=== PATIENT | female | born 1970 | race Caucasian/White ===

== ENCOUNTER → 2021-09-12 13:01 | Outpatient (BNVA) | payer MEDICARE, MEDICAID, SELFPAY | PROVIDERS: PCP Internal Medicine; Visit Provider Psychiatry & Neurology Neurology | DX: R25.9 Unspecified abnormal involuntary movements (principal); R29.2 Abnormal reflex; F41.9 Anxiety disorder, unspecified; M54.2 Cervicalgia; G47.10 Hypersomnia, unspecified; R06.83 Snoring; F32.A Depression, unspecified | CPT/HCPCS: 99202 ==

== ENCOUNTER 2021-11-02 15:46 | Outpatient (REF) | payer MEDICARE, MEDICAID, SELFPAY ==
--- NOTE | ~2021-11-02 | MR_ITS ---
EXAMINATION: MR CERVICAL SPINE WITHOUT CONTRAST CLINICAL INFORMATION: Neck pain. COMPARISON: None TECHNIQUE: MRI of the cervical spine was obtained using routine sequences without contrast. FINDINGS: VERTEBRAL BODIES AND PARASPINAL SOFT TISSUES: The marrow signal is homogeneous. There is mild endplate spurring at the C6-C7 level with a generalized disc bulge. Slight reversal of the normal cervical lordosis evident. There are no compression fractures. There is a mild rightward curvature of the cervical spine as well. No marrow edema is seen. The paraspinal soft tissues are unremarkable. The vertebral artery flow-voids are preserved. The imaged lung apices are grossly clear. CERVICOMEDULLARY JUNCTION AND VISUALIZED POSTERIOR FOSSA: The craniovertebral junction and imaged portions of the brain parenchyma are normal. No cord signal abnormality or syrinx is seen. SPINAL LEVELS: C2-C3: No disc pathology, central canal stenosis, or foraminal narrowing. Mild left-sided facet arthrosis. C3-C4: No disc abnormality. Patent central canal and foramina. C4-C5: Minimal annular bulge. No central canal stenosis or foraminal encroachment. C5-C6: Very mild disc bulge and endplate spurring without central canal stenosis. Mild left foraminal narrowing. C6-C7: Small central disc protrusion and mild disc bulge without central canal stenosis or foraminal narrowing. C7-T1: No disc pathology. Minimal anterior subluxation and mild facet arthropathy. MR/MR cervical spine wo con IMPRESSION: Very mild spondylitic changes, more so at the C5-C6 level. Small central disc protrusion and mild disc bulge at the C6-C7 level. Mild reversal of the normal cervical lordosis.
== END 2021-11-02 15:47 | disposition home or self-care (01) ==
LOC: HO.MRI 15:46
PROVIDERS: Visit Provider Psychiatry & Neurology Neurology
DX: M54.2 Cervicalgia (principal); R25.9 Unspecified abnormal involuntary movements; R29.2 Abnormal reflex
CPT/HCPCS: 72141

== ENCOUNTER → 2021-11-22 15:09 | Outpatient (BNVA) | payer MEDICARE, MEDICAID, SELFPAY | PROVIDERS: PCP Internal Medicine; Visit Provider Psychiatry & Neurology Neurology | DX: R25.9 Unspecified abnormal involuntary movements (principal); M54.2 Cervicalgia; G47.10 Hypersomnia, unspecified; R06.83 Snoring; Z79.899 Other long term (current) drug therapy | CPT/HCPCS: Q3014 ==

== ENCOUNTER 2024-03-04 14:26 | Outpatient (AMB) | payer MEDICARE, MEDICAID, SELFPAY ==
--- NOTE | 2024-03-04 14:29 | A.OFFVIS_ITS ---
Intake Visit Reasons: Chronic Joint Pain Intake Note: Pain today 8/10 Thai Masseur Required: No Accompanied by: Self / Same As Patient Allergies adhesive Allergy (Mild, Verified 03/04/24 14:51) Rash naproxen Allergy (Mild, Verified 03/04/24 14:51) Rash amoxicillin Allergy (Verified 03/04/24 14:51) Unknown HPI Comments Details: Patient is a very pleasant 53-year-old female who presents to the office today for evaluation and management of her chronic diffuse joint pain Past medical history significant for headaches, fatigue, asthma, mental illness, high blood pressure She complains of pain over the last 2 years to the knees, ankles, wrists, elbows, upper, middle and lower back Reports that she has had blood work done for her primary care doctor to rule out any autoimmune disorders. All labs were negative. She was recently evaluated by [facility] treatment [facility], had injections to her elbows and wrists with some improvement Previously prescribed gabapentin 600 mg twice daily with no improvement of her symptoms so she stopped taking it No improvement with Cymbalta in the past either. Attempted physical therapy years ago with improvement of her symptoms. She has not really attempted recently. Denies history of chiropractor, acupuncture or massage. Pain is constant, worse in the afternoon. Pain today is rated as an 8/10 In terms of muscle damage condition is described as pulsing, throbbing, pounding, dull, sore, aching, tight, squeezing Pain is negatively impacting patient's enjoyment of life, general activity, ability for activities of daily living, ability to care for herself, normal functioning and normal sleep Denies current use of anticoagulants Denies implantable devices, pacemaker defibrillator Denies current use of nicotine, tobacco, alcohol or illicit substances [facility] Medical History (Updated 03/04/24 @ 15:40 by Mireya Mason, CONTROL TOWER RADIO OPERATOR, ENVIRONMENTAL ADVISER) Hyperlipidemia Chronic elbow pain Chronic wrist pain Insomnia Cataract Borderline hyperlipidemia Anemia Sleep disorder Asthma Anxiety Depression Surgical History History of bunionectomy of right great toe History of breast lift Hx of abdominoplasty H/O cone biopsy of cervix H/O breast biopsy Family History Father Parkinsons disease Asthma HTN (hypertension) Mother HTN (hypertension) COPD (chronic obstructive pulmonary disease) Kidney disease Social History Alcohol intake: current Alcohol intake frequency: holidays/special occasions only Patient Tobacco Use Status: Never used Tobacco Gender identity: Female Review of Systems Const All systems reviewed & are unremarkable except as noted in HPI and below Physical Exam General: awake, alert, oriented. Answers questions appropriately. Fully engaged in examination. Skin: warm, dry, intact HEENT: Normocephalic. Hearing intact. Cardiac: External chest normal in appearance. Respiratory: No cough, audible wheezing or stridor. Abdomen: without gross distension. MS: No obvious swelling or deformities. Able to transition from sit to stand unassisted. Ambulates with bilaterally normal heel strike and toe off Neurological: Oriented to person, place, time and situation. Thought process intact. No gait abnormalities appreciated. Psychiatric: Appropriate mood and affect. Good judgment and insight. Assessment & Plan Assessment & Plan (1) Myofascial muscle pain: Comment: back Code(s): M79.18 - Myalgia, other site Category: Medical (2) Neck pain: Code(s): M54.2 - Cervicalgia Category: Medical (3) Lumbar spondylosis: Code(s): M47.816 - Spondylosis without myelopathy or radiculopathy, lumbar region Category: Medical (4) Polyarthralgia: Code(s): M25.50 - Pain in unspecified joint Category: Medical Plan X-rays ordered for evaluation, cervical, lumbar and thoracic spine Order placed for PT eval and treat Patient referred to rheumatology for polyarthralgia New prescription for Lyrica 25 mg p.o. 3 times daily. Patient advised on cautions for use. All questions and concerns were answered, patient agrees with plan. Follow-up in 3 weeks by phone to review medication and consider dose increase. Follow up sooner if needed Orders: Orders XR cervical spine w flex/ext Today M54.2 - Cervicalgia XR lumbar spine 4V min Today M54.9 - Dorsalgia, unspecified XR thoracic spine 3V Today M54.9 - Dorsalgia, unspecified PT Evaluation and Treatment Today M54.2 - Cervicalgia, M54.9 - Dorsalgia, unspecified, M79.18 - Myalgia, other site Referrals Rheumatology Referral M25.50 - Pain in unspecified joint Medications: New pregabalin (Lyrica) 25 mg PO TID 90 caps 2RF Coding Level of Care Code New Pt Level 4 (80530) Complex EM visit Add On G2211 Diagnoses Myofascial muscle pain M79.18 Neck pain M54.2 Lumbar spondylosis M47.816 Polyarthralgia M25.50
== END 2024-03-04 15:07 | disposition home or self-care (01) ==
PROVIDERS: PCP Internal Medicine; Visit Provider Registered Nurse Emergency
DX: M79.18 Myalgia, other site (principal); M54.2 Cervicalgia; M47.816 Spondylosis without myelopathy or radiculopathy, lumbar region; M25.50 Pain in unspecified joint
CPT/HCPCS: 99204; G2211

== ENCOUNTER → 2024-03-04 14:26 | Outpatient (BNVA) | payer MEDICARE, MEDICAID, SELFPAY | PROVIDERS: PCP Internal Medicine; Visit Provider Registered Nurse Emergency | DX: M79.18 Myalgia, other site (principal); M54.2 Cervicalgia; M47.816 Spondylosis without myelopathy or radiculopathy, lumbar region; M25.50 Pain in unspecified joint | CPT/HCPCS: 99202 ==

== ENCOUNTER 2024-03-18 14:47 | Outpatient (AMB) | payer MEDICARE, MEDICAID, SELFPAY ==
--- NOTE | 2024-03-18 14:25 | A.OFFVIS_ITS ---
Intake Visit Reasons: Medication Discussion Allergies adhesive Allergy (Mild, Verified 03/04/24 14:51) Rash naproxen Allergy (Mild, Verified 03/04/24 14:51) Rash amoxicillin Allergy (Verified 03/04/24 14:51) Unknown HPI Comments Details: Telephone visit completed today for follow-up, medication management At last visit patient was started on Lyrica 25 mg 3 times daily Reports 25% improvement in pain. Denies any untoward effects of the medication. Awaiting call from Rheumatology in [place] to schedule appointment for eval/management Intake note: Patient is a very pleasant 53-year-old female who presents to the office today for evaluation and management of her chronic diffuse joint pain Past medical history significant for headaches, fatigue, asthma, mental illness, high blood pressure She complains of pain over the last 2 years to the knees, ankles, wrists, elbows, upper, middle and lower back Reports that she has had blood work done for her primary care doctor to rule out any autoimmune disorders. All labs were negative. She was recently evaluated by arthritis treatment Center, had injections to her elbows and wrists with some improvement Previously prescribed gabapentin 600 mg twice daily with no improvement of her symptoms so she stopped taking it No improvement with Cymbalta in the past either. Attempted physical therapy years ago with improvement of her symptoms. She has not really attempted recently. Denies history of chiropractor, acupuncture or massage. Pain is constant, worse in the afternoon. Pain today is rated as an 8/10 In terms of muscle damage condition is described as pulsing, throbbing, pounding, dull, sore, aching, tight, squeezing Pain is negatively impacting patient's enjoyment of life, general activity, ability for activities of daily living, ability to care for herself, normal functioning and normal sleep Denies current use of anticoagulants Denies implantable devices, pacemaker defibrillator Denies current use of nicotine, tobacco, alcohol or illicit substances [facility] Medical History (Updated 03/04/24 @ 15:40 by Mireya Mason APRN, SEROLOGY TEACHER) Hyperlipidemia Chronic elbow pain Chronic wrist pain Insomnia Cataract Borderline hyperlipidemia Anemia Sleep disorder Asthma Anxiety Depression Surgical History History of bunionectomy of right great toe History of breast lift Hx of abdominoplasty H/O cone biopsy of cervix H/O breast biopsy Family History Father Parkinsons disease Asthma HTN (hypertension) Mother HTN (hypertension) COPD (chronic obstructive pulmonary disease) Kidney disease Social History Alcohol intake: current Alcohol intake frequency: holidays/special occasions only Patient Tobacco Use Status: Never used Tobacco Gender identity: Female Review of Systems Const All systems reviewed & are unremarkable except as noted in HPI and below Physical Exam Telephone visit only, vital signs and physical exam deferred Telehealth Telehealth Telehealth Platform: Telephone Location of provider rendering services: practice address Location of patient: address on file Patient Identification confirmed using: Name, : Yes Telehealth method: voice only Patient verbally consented to treatment: Yes Patient verbally consented to billing insurance company: Yes Patient informed of any privacy concerns related to visit: Yes Minutes spent on Phone/Video with Pt.: 24 Assessment & Plan Assessment & Plan (1) Myofascial muscle pain: Comment: back Code(s): M79.18 - Myalgia, other site Category: Medical (2) Neck pain: Code(s): M54.2 - Cervicalgia Category: Medical (3) Lumbar spondylosis: Code(s): M47.816 - Spondylosis without myelopathy or radiculopathy, lumbar region Category: Medical (4) Polyarthralgia: Code(s): M25.50 - Pain in unspecified joint Category: Medical Plan Telephone visit completed today for follow-up, medication management Tolerating Lyrica 25 mg t.i.d.. Pain has decreased by approximately 25%. Will increase to 50 mg 3 times daily. We will start with 25 mg twice daily than 50mg at bedtime for 1 week. Then 50 mg in the morning 50 mg in the evening and 25 mg in the afternoon for 1 week. After this she may increase to 50 mg 3 times daily. Continue with plan for follow up with Rheumatology. Referral has been placed for [facility] All questions and concerns were answered, patient agrees with plan. Follow-up after rheumatology appointment, sooner if needed Medications: New pregabalin (Lyrica) 50 mg PO TID 90 caps 2RF Coding Level of Care Code Tele Est Pt Level 3 (50451) Complex EM visit Add On G2211 Diagnoses Myofascial muscle pain M79.18 Neck pain M54.2 Lumbar spondylosis M47.816 Polyarthralgia M25.50
== END 2024-03-18 14:50 | disposition home or self-care (01) ==
LOC: HO.PMC 14:47
PROVIDERS: PCP Internal Medicine; Visit Provider Registered Nurse Emergency
DX: M79.18 Myalgia, other site (principal); M54.2 Cervicalgia; M47.816 Spondylosis without myelopathy or radiculopathy, lumbar region; M25.50 Pain in unspecified joint
CPT/HCPCS: 99443

== ENCOUNTER 2024-07-22 11:00 | Outpatient (REF) | payer MEDICARE, MEDICAID, SELFPAY ==
--- NOTE | ~2024-07-22 | XR_ITS ---
CLINICAL HISTORY: M25.50 - Pain in unspecified joint 3 view bilateral ankle Comparison: None Findings: Bones intact. No dislocations. No significant loss of joint space, osteophytes, or erosions. No ankle effusion. No radiopaque foreign body. IMPRESSION: 1. No acute findings. This document has been electronically signed by: Doe Francisco MD on 07/24/2024 07:44:34
--- NOTE | ~2024-07-22 | XR_ITS ---
CLINICAL HISTORY: M25.50 - Pain in unspecified joint 3 view bilateral foot Comparison: None Findings: Bones intact. No dislocations. No significant loss of joint space, osteophytes, or erosions. No ankle effusion. No radiopaque foreign body. IMPRESSION: 1. No acute findings. This document has been electronically signed by: Doe Francisco MD on 07/24/2024 07:45:39
--- NOTE | ~2024-07-22 | XR_ITS ---
CLINICAL HISTORY: M25.50 - Pain in unspecified joint 7 view bilateral elbow Comparison: None Findings: No acute fractures or dislocations. No significant arthritic change or erosions. No joint effusion. No radiopaque foreign body. IMPRESSION: 1. No acute findings This document has been electronically signed by: Doe Francisco MD on 07/24/2024 07:44:53
--- NOTE | ~2024-07-22 | XR_ITS ---
CLINICAL HISTORY: M25.50 - Pain in unspecified joint 3 view left hand Comparison: None Findings: No fractures or dislocations. No significant loss of joint space or osteophytes. No erosions. No radiopaque foreign body. IMPRESSION: 1. No acute findings This document has been electronically signed by: Doe Francisco MD on 07/24/2024 07:48:07
--- NOTE | ~2024-07-22 | XR_ITS ---
CLINICAL HISTORY: M25.50 - Pain in unspecified joint 4 view bilateral wrist Comparison: None Findings: No fractures or dislocations. No significant arthritic change or erosions. No radiopaque foreign body. IMPRESSION: 1. No acute findings This document has been electronically signed by: Doe Francisco MD on 07/24/2024 07:46:48
[2024-07-22 12:30] LABS: MANUAL DIFF FLAG NO
[2024-07-22 12:52] LABS: Basophils Percent Auto 0.7 % (0-2); Eosinophils Absolute Auto 0.3 X10*3/uL (0.0-0.4); Eosinophils Percent Auto 5.1 % (0-4); Hematocrit 41.8 % (37.0-47.0); Hemoglobin 13.9 g/dl (12.0-16.0); Imm Gran Abs Auto 0.02 X10*3/uL (0.00-0.03); Imm Gran Pct Auto 0.4 % (0.0-0.4); Lymphocytes Absolute Auto 1.8 X10*3/uL (1.2-4.9); Lymphocytes Percent Auto 32.1 % (20-40); Mean Corpuscular HGB Conc 33.3 g/dl (31.0-35.0); Mean Corpuscular Hemoglobin 29.9 pg (27.0-33.0); Mean Corpuscular Volume 89.9 fL (80.0-98.0); Mean Platelet Volume 11.3 fL (9.4-12.3); Monocytes Absolute Auto 0.4 X10*3/uL (0.1-1.2); Monocytes Percent Auto 7.4 % (2-11); Neutrophils Absolute Auto 3.1 x10*3/uL (2.0-8.3); Neutrophils Percent Auto 54.3 % (45-73); Platelet Count 221 X10*3/uL (160-400); Red Blood Count 4.65 X10*6/uL (4.20-5.50); Red Cell Distribution Width 12.9 % (11.0-16.0); White Blood Count 5.7 X10*3/uL (4.8-10.8)
[2024-07-22 13:04] LABS: Appearance Urine Clear; Color Urine Yellow; Glucose Urine UA Negative (Negative); Leukocyte Esterase Urine Small (1+) (Negative); Nitrite Urine Negative (Negative); PH 7.5 (5.0-9.0); Specific Gravity - Urine <= 1.005 (1.005-1.025); UMIC TRIGGER UA YES; Urine Blood Negative (Negative); Urine Ketones Negative (Negative); Urine Protein Negative (Neg-Trace)
[2024-07-22 13:06] LABS: Bacteria Urine Trace (None Seen); Hyaline Casts Urine 0-2 /LPF (0-2); RBC Urine 0-2 /HPF (0-2)
[2024-07-22 13:24] LABS: Rheumatoid Factor < 13.0 IU/mL (<15.0)
[2024-07-22 13:29] LABS: Erythrocyte Sedimentation Rate 9 MM/HR (0-20)
[2024-07-22 13:48] LABS: Alanine Aminotransferase 62 U/L (0-31); Albumin Level 4.3 g/dL (3.5-5.0); Alkaline Phosphatase 100 U/L (39-117); Anion Gap 11 (12-20); Aspartate Amino Transferase 42 U/L (5-31); Bilirubin Total 0.3 mg/dL (0.0-1.0); Blood Urea Nitrogen 13 mg/dL (9-16); Calcium 9.4 mg/dL (8.4-10.2); Carbon Dioxide 24 mmol/L (22-29); Chloride 113 mmol/L (96-108); Estimated Glomerular Filt Rate > 60; Glucose Random 109 mg/dL (60-115); Potassium 3.5 mmol/L (3.3-5.1); Sodium 144 mmol/L (135-145); Total Protein 7.1 g/dL (6.5-8.0); Uric Acid 4.4 mg/dL (2.4-5.7)
[2024-07-22 14:01] LABS: HBc Num1 0.05 S/CO (0.00-0.79); HBsAGNum1 0.29 S/CO (0.00-0.99); Hepatitis A Antibody IgM 0.21 Index (0-0.79); Hepatitis B Core Antibody Nonreactive (Nonreactive); Hepatitis B Surface Antigen Negative (Negative); ~HepC Num1 0.08 S/CO (0.00-0.79); ~Hepatitis A Antibody IgM Nonreactive (Nonreactive); ~Hepatitis B Surface Antibody NONREACTIVE (Nonreactive); ~Hepatitis C Antibody Nonreactive (Nonreactive)
[2024-07-22 14:24] LABS: Creatinine Urine 17.91 mg/dL; Total Protein Urine Random < 7 mg/dL (<12)
[2024-07-23 17:49] LABS: Thyroglobulin Antibodies <1 IU/mL (< or = 1); Thyroid Peroxidase Antibodies 1 IU/mL (<9)
[2024-07-23 21:52] LABS: Anti DNA DS Antibody <1 IU/mL; Antibody to SS-A Antigen <1.0 NEG AI (<1.0 NEG); Antibody to SS-B Antigen <1.0 NEG AI (<1.0 NEG); SM/Ribonucleoprotein Ab <1.0 NEG AI (<1.0 NEG); Scleroderma 70 Antibody <1.0 NEG AI (<1.0 NEG); Smith Protein <1.0 NEG AI (<1.0 NEG)
[2024-07-25 17:04] LABS: Prot Elec - Albumin 4.2 g/dL (3.8-4.8); Prot Elec - Alpha1 0.2 g/dL (0.2-0.3); Prot Elec - Alpha2 0.6 g/dL (0.5-0.9); Prot Elec - Beta 1 0.5 g/dL (0.4-0.6); Prot Elec - Beta 2 0.4 g/dL (0.2-0.5); Prot Elec - Gamma 0.9 g/dL (0.8-1.7); Prot Elec - Total Protein 6.9 g/dL (6.1-8.1)
[2024-07-26 10:33] LABS: Anti Nuclear Antibody Screen NEGATIVE (NEGATIVE)
[2024-07-26 11:03] LABS: Complement C3 153 mg/dL (83-193)
[2024-07-26 11:39] LABS: IgA 313 mg/dL (47-310); IgG 1026 mg/dL (600-1640); IgM 50 mg/dL (50-300)
[2024-07-26 15:03] LABS: Vitamin D 25-OH, D2 <4 ng/mL; Vitamin D 25-OH, D3 37 ng/mL; Vitamin D 25-OH, Total 37 ng/mL (30-100)
[2024-07-26 19:29] LABS: Cyclic Citrullinated Peptide <16 UNITS
== END 2024-07-22 11:01 | disposition home or self-care (01) ==
LOC: HO.LAB 11:00
PROVIDERS: PCP Internal Medicine; Visit Provider Student in an Organized Health Care Education/Training Program
DX: M25.50 Pain in unspecified joint (principal)
CPT/HCPCS: 36415; 73080; 73110; 73130; 73610; 73630; 80053; 81001; 82306; 82570; 82784; 84156; 84165; 84443; 84550; 85025; 85652; 86038; 86140; 86160; 86200; 86225; 86235; 86334; 86376; 86431; 86704; 86706; 86709; 86800; 86803; 87340; 99202

== ENCOUNTER 2024-07-22 11:00 | Outpatient (AMB) | payer MEDICARE, MEDICAID, SELFPAY ==
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
[2024-07-22 11:04] VITALS: BP 122/62; PULSE 83; O2SAT 98; BMI 26.4
--- OUTSIDE RECORDS SUMMARY | 2024-07-22 12:45 | XMS_ITS | Clinical Summary ---
Author Organization [facility] Address [address] [place] [address] Phone Care Team Providers Care Television Parts Tester Name Role Phone Daniele Floyd DO Primary Care Provider Encounters Date Type Department Care Team Description 07/05/2024 2:53 PM EDT - 07/05/2024 11:59 PM EDT Hospital Encounter [facility] at [address] [phone] Encounter for screening mammogram for breast cancer Discharge Disposition: Home or Self Care from Last 3 Months Surgical History Surgery Date Site/Laterality Comments OTHER SURGICAL HISTORY PROCEDURE: HISTORY OTHER; COMMENT: abdominoplasty OTHER SURGICAL HISTORY 09/14/2014 Left PROCEDURE: HISTORY OTHER; COMMENT: biopsy-breat mass-4-5:00, 5 cm from nipple; no evidence of malignancy CERVICAL BIOPSY W/ LOOP ELECTRODE EXCISION 2014 PROCEDURE: HISTORICAL CONE BIOPSY FOOT SURGERY PROCEDURE: HISTORICAL FOOT SURGERY; COMMENT: Hallux Valgus(bunion) Correction BREAST BIOPSY Left PROCEDURE: BX BREAST; PERC NEEDLE CORE W/IMAG GUID; COMMENT: neg BREAST SURGERY Bilateral PROCEDURE: LA UNLISTED PROCEDURE BREAST; COMMENT: breast lift MASTOPEXY 03/24/2009 - 03/23/2010 Bilateral Medical History Medical History Date Comments Depression 10/10/2008 DX:Depression Allergic rhinitis 01/07/2006 DX:Allergic rh initis Asthma 01/07/2006 DX:Asthma Anxiety 11/12/2017 DX:Anxiety; COMM ENT: Social phobia and agoraphobia Migraine 05/13/2006 DX:Migraine Fibromyalgia 11/12/2017 DX:Fibromyalgia Hyperlipidemia 11/12/2017 DX:Hyperlipidemi a Carpal tunnel syndrome 11/12/2017 DX:Carpal tunnel syndrome History of abnormal cervical Pap smear DX:History of abnormal cervical Pap smear; COMMENT: No abnormal report in records; 2014 history of cervical conization loop excison Chronic maxillary sinusitis 05/14/2006 DX:C hronic maxillary sinusitis Family History Medical History Relation Name Comments Suicide Attempts Aunt 1 paternal Diabetes Aunt 2 Angioplasty Brother 1 Asthma Father Diabetes Maternal Grandmother Hypertension Mother Multiple sclerosis Mother Other: kidney disease stage 3 Mother Other: skin cancer Mother Suicide Attempts Paternal Grandfather Breast cancer Neg Hx Relation Name Status Comments Aunt 1 Aunt 2 Brother 1 Alive healthy Brother 2 Alive depression Father Alive Asthma Maternal Grandmother Mother Alive HTN, hypothyroi d, depress Paternal Grandfather Social History Tobacco Use Types Packs/Day Years Used Date Smoking Tobacco: Light Smoker Smokeless Tobacco: Never Alcohol Use Standard Drinks/Week Comments Yes 0 (1 standard drink = 0.6 oz pur e alcohol) Comments No Sex and Gender Information Value Date Recorded Sex Assigned at Female 10/28/2022 9:56 AM EDT Legal Sex Female 1:15 PM EST Gender Identity Female 10/28/2022 9:56 AM EDT Sexual Orientation Not on file Obstetrics History Para Term AB IAB SAB Ectopic Multiple Livin g Live Births 2 Last Filed Vital Signs Vital Sign Reading Time Taken Comments Blood Pressure - - Pulse - - Temperature - - Respiratory Rate - - Oxygen Saturation - - Inhaled Oxygen Concentration - - Weight 63.5 kg (140 lb) 07/05/2024 3:02 PM EDT Height 157.5 cm (5' 2 ) 07/05/2024 3:02 PM EDT Body Mass Index 25.61 07/05/2024 3:02 PM EDT Plan of Treatment Health Maintenance Due Date Last Done Comments Hepatitis B Vaccines (1 of 3 - 19+ 3-dose series) 1988 Pneumococcal Vaccine: 50+ Years (2 of 2 - PCV) 12/10/2018 12/10/2017 Pneumococcal Vaccine: Pediatrics (0 to 5 Years) and At-Risk Patients (6 to 64 Years) (2 of 2 - PCV) 12/10/2018 12/10/2017 Zoster Vaccines (1 of 2) 12/31/2019 Cholesterol Screening (Lipid Panel) 03/02/2022 Colorectal Cancer Screening: Colonoscopy 03/02/2022 Depression Screening 03/02/2022 HIV Screening 03/02/2022 Hepatitis C Screening 03/02/2022 Medicare Annual Wellness Visit 03/02/2022 Social Influencers of Health Screening 03/02/2022 Cervical Cancer Screening: Pap Smear 07/20/2023 07/19/2020, 02/24/2018 COVID-19 Vaccine ( season) 2023 07/15/2020, 06/23/2020 Influenza Vaccine (Season Ended) 2024 11/26/2018, 12/10/2017, 01/27/2007 Breast Cancer Screening 07/05/2026 07/06/19, 09/10/2022, 09/01/2021, Additional history exists DTaP,Tdap,and Td Vaccines (3 - Td or Tdap) 11/26/2028 11/26/2018, 10/10/2008 HIB Vaccines Aged Out No longer eligi ble based on patient's age to complete this topic HPV Vaccines Aged Out No longer eligi ble based on patient's age to complete this topic Hepatitis A Vaccines Aged Out No long er eligible based on patient's age to complete this topic IPV Vaccines Aged Out No longer eligi ble based on patient's age to complete this topic MMR Vaccines Aged Out No longer eligi ble based on patient's age to complete this topic Meningococcal ACWY Vaccine Aged Out N o longer eligible based on patient's age to complete this topic Meningococcal B Vaccine Aged Out No l onger eligible based on patient's age to complete this topic RSV Immunization Patients Under 20 months Aged Out No longer eligible based on patient's age to complete this topic Varicella Vaccines Aged Out No longer eligible based on patient's age to complete this topic Procedures Procedure Name Priority Date/Time Associated Diagnosis Comments MG MAMMO DIGITAL SCREENING W VIRGIL BILAT Routine 07/05/2024 3:15 PM EDT Encounter for screening mammogram for breast cancer PAP SMEAR Routine 07/19/2020 from Last 3 Months or Most Recently Relevant to Health Maintenance Results * MG Mammo Digital Screening w Virgil bilat (07/05/2024 3:15 PM EDT) Anatomical Region Laterality Modality Breast Bilateral Mammography 07/07/2024 10:3 9 AM EDT Impressions 07/07/2024 10:47 AM EDT No mammographic evidence of malignancy. ?? No suspicious interval change. A negative mammogram in the presence of a clinically suspicious palpable abnormality does not preclude the possibility of malignancy or alter the indications for biopsy. ASSESSMENT: ?? BI-RADS 2: BENIGN RECOMMENDATION(S): 1: Routine screening mammogram BILATERAL in 1 year. [facility] location[facility] at [address], [address] -------- FINAL REPORT -------- Dictated By: Drew Mccoy Dictated Date: 07/07/2024 10:39 ET Assigned Physician: Drew Mccoy Reviewed and Electronically Signed By: Drew Mccoy Signed Date: 07/07/2024 10:47 ET Workstation ID: [id number] Transcribed By: Self Edit Transcribed Date: 07/07/2024 10:39 ET Narrative 07/07/2024 10:47 AM EDT EXAM: ??SCREENING MAMMOGRAPHY, BILATERAL HISTORY: ??SCREENING. ??Previous bilateral breast surgery (left), keyhole scar bilaterally. COMPARISON: ??09/10/22, 09/01/21, 08/25/20 TECHNIQUE: Synthesized CC and MLO projections of each breast. ??Tomosynthesis of each breast in the CC and MLO projections. ADDITIONAL IMAGING: None Computer-aided detection was employed with the iCAD ??ProFound AI 3-D. TISSUE DENSITY: The breasts are heterogeneously dense, which may obscure small masses. (BI-RADS category C) FINDINGS: RIGHT BREAST: No suspicious mass. No suspicious calcification. ?No change in the breast architecture. LEFT BREAST: No suspicious mass. No suspicious calcification. ?No change in the breast architecture. Procedure Note Drew Mccoy MD - 07/07/2024 EXAM: SCREENING MAMMOGRAPHY, BILATERAL HISTORY: SCREENING. Previous bilateral breast surgery (left), keyholescar bilaterally. COMPARISON: 09/10/22, 09/01/21, 08/25/20 TECHNIQUE: Synthesized CC and MLO projections of each breast.Tomosynthesis of each breast in the CC and MLO projections. ADDITIONAL IMAGING: None Computer-aided detection was employed with the iCAD Chief Trunk AI 3-D. TISSUE DENSITY: The breasts are heterogeneously dense, which may obscuresmall masses. (BI-RADS category C) FINDINGS: RIGHT BREAST: No suspicious mass. No suspicious calcification. No change in thebreast architecture. LEFT BREAST: No suspicious mass. No suspicious calcification. No change in thebreast architecture. IMPRESSION: No mammographic evidence of malignancy. No suspicious interval change. A negative mammogram in the presence of a clinically suspicious palpableabnormality does not preclude the possibility of malignancy or alter theindications for biopsy. ASSESSMENT: BI-RADS 2: BENIGN RECOMMENDATION(S): 1: Routine screening mammogram BILATERAL in 1 year. [facility] location[facility] at [address], [id number] -------- FINAL REPORT -------- Dictated By: Drew Mccoy Dictated Date: 07/07/2024 10:39 ET Assigned Physician: Drew Mccoy Reviewed and Electronically Signed By: Drew Mccoy Signed Date: 07/07/2024 10:47 ET Workstation ID: [id number] Transcribed By: Self Edit Transcribed Date: 07/07/2024 10:39 ET us Self Referral Sppl IMG BI PROCEDURES Final Resul t * Pap smear (07/19/2020) 07/19/2020 Narrative HISTORICAL TESTING LAB RESULTING AGENCY - 07/27/2020 1:06 PM EDT [id number] THINPREP PAP, IMAGED: NEGATIVE FOR SQUAMOUS INTRAEPITHELIAL LESION AND MALIGNANCY . ENDOMETRIAL CELLS ARE PRESENT. RAY MARTINEZ , APOORVA(ASCP) (CASE SCREENED 07 24 2020) ELIZABETH BUSH M.D. , PATHOLOGIST (CASE ELECTRONICALLY SIGNED 07 24 2020) RESULT OF APTIMA HIGH RISK HPV ASSAY: HIGH RISK HPV: ??NEGATIVE (SEROTYPES 16,18,31,33,35,39,45,51,52,56,58,59,66,68) COMPLETED ON 2020-07-21 ADEQUACY: SATISFACTORY ENDOCERVICAL/TRANSFORMATION ZONE COMPONENT ABSENT. SOURCE: THINPREP PAP HPV ANY DX: ??REFLEX 16 AND 18, CERVICAL, IMAGED CLINICAL INFORMATION: HPV ANY DIAGNOSIS. MENOPAUSE, PAP HX NEG, NO LMP RECORDED, IRREGULAR MENSES [Z12.4, Z01.419] us Maddi Mariano CNM LAB CYTOLOGY ORDERABLES Freda quintero Result HISTORICAL TESTING LAB RESULTING AGENCY from Last 3 Months or Most Recently Relevant to Health Maintenance Insurance MEDICARE Care Teams Television Parts Tester Relationship Specialty Start Date End Date Daniele Floyd DO [address] [place] [phone] PCP - General Internal Medicine 07/18/21
--- OUTSIDE RECORDS SUMMARY | 2024-07-22 12:46 | XMS_ITS | Data Portability ---
Author Organization [place] - [facility], Allergy Address [address] [facility] [address] [address] Care Team Providers Care Lithographic Press Operator Name Role Phone KYLER ODOM Primary Care Provider [phone] Assessment Encounter Date Assessment Date Assessment LastModified by Organization Details LastModified Time 04/22/2024 04/22/2024 53yo female with seasonal allergies, asthma, and history of nasal trauma 2005 presents for evaluation of the ears and nose. She endorses bilateral ear blockage sensation, right worse then left, for a couple of months. She experienced the same ear blockage last fall. TMs are intact and well-aerated. Right tympanometry is borderline type C, which may explain her aural pressure and blockage sensation. Nasal endoscopy shows inferior turbinate hypertrophy and right medial septal spur without obvious polyp, obstruction, or purulence. Audiometric testing demonstrates symmetric mild mid-high frequency sensorineural hearing loss bilaterally. In years past she has been on nasal steroid sprays with improvement of her breathing, so recommend repeating a trial of fluticasone. Also recommend daily Cetirizine and repeat skin allergy testing. If allergy work up is negative, will consider referral to Dr. Kyler Odom for valvular incompetence and freight unloader graft consult per Dr. Peacock prior note. [email or web address] Not available 04/22/2024 19:45:27 04/22/2024 04/22/2024 Recommendations: Follow up with referring provider. [email or web address] Not available 04/22/2024 11:18:33 06/21/2024 06/21/2024 53yo female with seasonal allergies, asthma, and history of nasal trauma 2005 presents for reevaluation of the ears and nose. She trialed oral antihistamine and intranasal fluticasone with minimal improvement in nasal congestion, R>L, and aural fullness. Anterior rhinoscopy is unremarkable for purulence or mucosal edema. Recommend CT sinus and formal allergy testing for further investigation. Patient may benefit from valvular incompetence consult with Dr. Acevedo. dena Not available 06/21/2024 17:51:24 Plan of Treatment Reminders Order Date Submit Date Provider Last Modified By Organization Details Last Modified Time Details Appointments Test Results 15 2024 04:00P Perez CHILDS PA-C Not available Not available Not available Lab None recorde d. Referral None recorde d. Procedures allergy testing , skin prick (PROC) 2024 025 [email or web address] Not available 06/22/2024 14:39:40 intrade rmal allergy skin testing (PROC) 2024 025 hlorinser Not available 06/22/2024 14:39:41 pulmona ry functio n test procedu re (PROC) 2024 025 hlorinser Not available 06/22/2024 14:39:41 pulse oximetr y (PROC) 2024 025 hlorinser Not available 06/22/2024 14:39:41 allergy testing , skin prick (PROC) 2024 025 hlorinser Not available 04/26/2024 15:27:58 intrade rmal allergy skin testing (PROC) 2024 025 hlorinser Not available 04/26/2024 15:27:58 pulmona ry functio n test procedu re (PROC) 2024 025 hlorinser Not available 04/26/2024 15:27:58 pulse oximetr y (PROC) 2024 025 hlorinser Not available 04/26/2024 15:27:58 Surgeries None recorde d. Imaging CT, maxillo facial, w/o contras t 2024 025 [facility], [address], [address], [place], [address], 06/21/2024 15:49:08 Medication Orders Zyrtec 10 mg tablet 2024 025 [id number], [address] [place], [address], 04/22/2024 11:58:52 Patient TargetsNo targets recorded. Patient InstructionsNo instructions recorded. Reason for Referral None Reported. Results Created Date Observation Date Name Description Value Unit Range Abnormal Flag Note LastModifiedBy Organization Detail LastModifiedTime 04/22/19 audio gram No observ ation record ed. BARCODE Not Available 2024 14:09:07 07/21/19 25 07/19/2024 CT, sinus es, w/o contr ast No observ ation record ed. [email or web address] [facility] [address] [address], [place], [address], 07/20/2024 15:53:17 Result Notes None recorded. Problems Name Problem SNOMED Code Status Onset Date Resolution Date Notes Provider Name and Address Organization Details Recorded Time Deviated nasal septum 601580696 Active 2020 Deviated nasal septum; Note: Date Diagnosed : 09/01/2020 2:31 PM (J34.2) Not Available [facility] 4 03:20:15 Allergic rhinitis caused by pollen 01216990 Active 2020 Allergic rhinitis due to pollen; Note: Date Diagnosed : 09/01/2020 2:31 PM (J30.1) Not Available [facility] 4 03:20:16 Sensorine ural hearing loss of bilateral ears 185095143 Active 2024 TARUN ALTMAN [place], CCC-A [address] [facility] [place], [place], [address] , [facility] - [facility] 5 11:19:25 Allergic rhinitis 24252881 Active 2024 ATIF CHILDS PA-C [address], [place], [address] , [facility] - [facility] 5 11:52:49 Non-aller gic rhinitis 32462234239 1 Active 2024 ATIF CHILDS PA-C [address] [place],[address] [facility], [facility] [place], [address] , [place] - [facility] 12:09:15 Seasonal allergic rhinitis 881945766 Active 2024 ATIF CHILDS PA-C [address] [place] [address], [facility] [place], [address] , [place] - [facility] 5 12:09:15 Disorder of right Eustachia n tube 53965094998 71811 Active 2024 ATIF CHILDS PA-C [address] [facility] [place] [facility], [facility] [place], [address] , [place] - [facility] 13:18:13 Nasal congestio n 19175399 Active 2024 ATIF CHILDS PA-C [address] [place] [address],[place] [address], [facility] [place], [address] , [place] - [facility] 15:46:43 Chronic sinusitis 89477485 Active 2024 ATIF CHILDS PA-C [address] [place], [place] [address]on [place] [address], [facility] [place], [address] , [place] - [facility] 15:46:53 Problem Notes None recorded. Procedures Surgical History Date Name Laterality Status Provider Name and Address Organization Details Recorded Time Nasal Endoscopy completed ATIF CHILDS PA-C [address] [facility],[place] [address], [place], [address], [facility] - [facility] 04/22/2024 19:33:14 Comp Audio with Tymps (97247 & 01607) completed TARUN ALTMAN MA, SHA-A [address] [facility], [place], [address], [facility] - [facility] 04/22/2024 11:19:15 Imaging Results Imaging Date Name Status LastModified by Organiz ation Details LastModified Time 04/22/2024 audiogram completed BARCODE Information no t available 04/22/2024 14:09:07 07/19/2024 CT, sinuses, w/o contrast completed [facility] [address] [facility] [address], [place], [address], 07/20/2024 15:53:17 Procedure Notes None recorded. Medical Equipment None Reported. Allergies Allergen ID Allergen Name Allergen Category Reaction Reaction Severity Criticality Documentation Date Start Date Code Code System Note Provider Name and Address Organization Details Recorded Time [id number] amoxicill in medicatio n other Not available Not available 08/05/2023 723 RxNorm React ion: other react ion, Unkno wn; Not Available [facility] 4 01:24:35 966140 diclofena c Not available Not available Not available Not available 06/21/2024 3355 RxNorm Leanne carver [place] - [facility] 15:22:53 Medications Name Sig Start Date Stop Date Status Note LastModified by Organization Details LastModified Time venlafaxi ne ER 37.5 mg capsule,e xtended release 24 hr TAKE 1 CAPSULE WITH FOOD ORALLY EVERY OTHER DAY 7 DAYS 06/21 completed Not Available Not Available Not Available venlafaxi ne ER 75 mg capsule,e xtended release 24 hr TAKE 1 CAPSULE WITH FOOD ORALLY ONCE A DAY W/ 150 MG 30 DAYS 06/21 completed Not Available Not Available Not Available atorvasta tin 20 mg tablet TAKE 1 TABLET BY MOUTH EVERY DAY FOR 30 DAYS active Not Available Not Available No t Available trazodone 50 mg tablet TAKE 1/2 TABLET DAILY BY MOUTH AT BEDTIME active Not Available Not Available No t Available cetirizin e 10 mg tablet TAKE 1 TABLET EVERY DAY BY ORAL ROUTE, FOR SEASONAL ALLERGIE S. active Not Available Not Available No t Available clonazepa m 0.5 mg tablet TAKE 1 TABLET BY MOUTH NEEDED ONCE A DAY FOR 30 DAYS active Not Available Not Available No t Available atenolol 25 mg tablet TAKE 1 TABLET BY MOUTH TWICE A DAY 06/21 completed Not Available Not Available Not Available venlafaxi ne ER 150 mg capsule,e xtended release 24 hr TAKE 1 CAPSULE BY MOUTH WITH FOOD ONCE A DAY WITH 75 MG FOR 90 DAYS 06/21 completed Not Available Not Available Not Available benzonata te 100 mg capsule TAKE 1 CAPSULE BY MOUTH THREE TIMES A DAY NEEDED FOR 5 DAYS 06/21 completed Not Available Not Available Not Available neomycin- polymyxin -dexameth 3.5 mg/mL-10, 000 unit/mL-0 .1% eye drops INSTILL 1 DROP INTO BOTH EYES FOUR TIMES A DAY USE FOR 2 WEEKS THEN STOP 06/21 completed Not Available Not Available Not Available Advair Diskus 500 mcg-50 mcg/dose powder for inhalatio n 2020 active Medicati on ID: [id number] B rand Name: Advair Diskus S end Method: E-Prescr ibed Sub s Allowed: subs OK Speci al Instruct ion: INHALE 1 PUFF INTO THE LUNGS EVERY 12 HOURS. Perez Zhou Name: Advair Diskus Not Available Not Available Not Available sertralin e 25 mg tablet TAKE 1 TABLET ONCE A DAY FOR 7 DAYS, THEN 2 TABLETS ONCE A DAY ORALLY ONCE A DAY 30 DAYS 06/21 completed Not Available Not Available Not Available albuterol sulfate HFA 90 mcg/actua tion aerosol inhaler INHALE 1 PUFF INTO THE LUNGS EVERY 4 HOURS NEEDED FOR 30 DAYS active Not Available Not Available No t Available topiramat e 100 mg tablet TAKE 1 TABLET BY MOUTH EVERY DAY active Not Available Not Available No t Available fluticaso ne propionat e 50 mcg/actua tion nasal spray,fili pension SPRAY 1 SPRAY INTO EACH NOSTRIL EVERY DAY FOR 30 DAYS active Not Available Not Available No t Available sertralin e 50 mg tablet TAKE 1 TABLET BY MOUTH EVERY DAY FOR 30 DAYS active Not Available Not Available No t Available bupropion HCl XL 150 mg 24 hr tablet, extended release TAKE 1 TABLET BY MOUTH EVERY DAY IN THE MORNING FOR 90 DAYS active Not Available Not Available No t Available topiramat e 50 mg tablet 06/21 completed Medicati on ID: [id number] B rand Name: topirama te Send Method: E-Prescr ibed Sub s Allowed: subs OK Medic ationGen ericName : topirama te Not Available Not Available Not Available pregabali n 25 mg capsule TAKE 1 TABLET ORALLY 3 TIMES A DAY 06/21 completed Not Available Not Available Not Available pregabali n 50 mg capsule TAKE 1 CAPSULE BY MOUTH THREE TIMES A DAY active Not Available Not Available No t Available venlafaxi ne ER 225 mg tablet,ex tended release 24 hr 06/21 completed Medicati on ID: [id number] B rand Name: brennen handley Send Method: E-Prescr ibed Sub s Allowed: subs OK Speci al Instruct ion: TAKE 1 TABLET BY MOUTH EVERY DAY WITH FOOD Med icationG enericNa me: venlafax ine Not Available Not Available Not Available venlafaxi ne ER 150 mg tablet,ex tended release 24 hr TAKE 1 TABLET BY MOUTH EVERY DAY WITH FOOD TAKE WITH 75 MG TAB 06/21 completed Not Available Not Available Not Available venlafaxi ne ER 75 mg tablet,ex tended release 24 hr TAKE 1 TABLET BY MOUTH EVERY DAY WITH FOOD TAKE WITH 150 MG TAB 06/21 completed Not Available Not Available Not Available Paxlovid 300 mg (150 mg x 2)-100 mg tablets in a dose pack TAKE 3 TABLETS BY MOUTH TWICE A DAY FOR 5 DAYS 06/21 completed Not Available Not Available Not Available Breo Ellipta 50 mcg-25 mcg/dose powder for inhalatio n INHALE 1 PUFF INTO THE LUNGS EVERY DAY FOR 30 DAYS active Not Available Not Available No t Available Vitals Date Recorded Body height Body mass index (BMI) Body weight Provider Name and Address Organization Details Last Updated DateTime 06/21/2024 157.48 cm 25.6 kg/m2 11096.93 g Leanne Irving [facility] 06/21/2024 15:22:49 Social History None recorded. Functional Status None recorded. Mental Status None recorded. Family History Nothing Reported. Medical History Condition Response Allergies/Hayfever Y Heart Problems N Anxiety Y Tonsil Infections N Emphysema N Migraines Y Thyroid Problems N Glaucoma N Depression Y COPD N Developmental Delay N Nasal or Sinus Problems Y Anemia N Immune System Disorder N Anesthesia Complications N Heart Attack (ME) N Other Skin Condition N Diabetes N Rhinitis N Bleeding Disorder N Food Allergy N Arthritis N Hearing Loss N Hyperlipidemia N Cancer N Stroke N Dementia N Nasal polyps N Asthma Y High Cholesterol N Sleep Disorder Y GERD/Reflux N Liver Disease N Headaches N Fibromyalgia N Hypertension N Speech Delay N Kidney Disease N Gynecological HistoryNo gynecological history recorded. Obstetrics History GPAL:G 0 P 0 0 0 0 Past Encounters Encounter ID Performer Location Encounter Start Date Encounter Closed Date Diagnosis/Indication Diagnosis SNOMED-CT Code Diagnosis ICD10 Code Diagnosis Note [id number] DENNY FOYC [facility] [address] [address] 04/22/2024 10:34:09 04/22/2024 12:10:28 Allergic rhinitis 80109392 J30.9 Deviated nasal septum 12 4657768 J34.2 Disorder o f right Eustachian tube 1103724613 839227 H69.91 Sensorineu ral hearing loss of bilateral ears 638493701 H90.3 Will offer amplificai ton at next visit [id number] TARUN ALTMAN [place], SHA-A [facility] [address] [address] 04/22/2024 10:34:09 04/22/2024 12:10:28 Sensorineural hearing loss of bilateral ears 791912538 H90.3 Audiologic al evaluation results: Right ear: {{Normal N ormal through 2 kHz Mild M oderate Mo derately-s evere Lor re Profoun d Normal through 2 kHz hearing sloping to a mild#}} {{hearing hearing. s loping to a mild slopi ng to a moderate s loping to moderately severe slo ping to severe slo ping to profound f lat high frequency low frequency mid frequency cookie bite henriquez curve to moderate SNHL#}} {{with* se nsorineura l hearing loss with condu ctive hearing loss with mixed hearing loss with}} {{excellen t* good fa ir poor no measurable }} word recognitio n. Left ear: {{Normal N ormal through 2 kHz Mild M oderate Mo derately-s evere Lor re Profoun d Normal hearing sloping to a mild#}} {{hearing hearing. s loping to a mild slopi ng to a moderate s loping to moderately severe slo ping to severe slo ping to profound f lat high frequency low frequency mid frequency cookie bite henriquez curve SNHL #}} {{with* se nsorineura l hearing loss with condu ctive hearing loss with mixed hearing loss with}} {{excellen t* good fa ir poor no measurable }} word recognitio n. Tympanomet ry: Right Ear:{{Type A Type As Type Ad Type C Type C, shallow & rounded Ty pe B Type B with large volume Cou ld not maintain a hermetic seal Type A (rounded)# }} Left Ear:{{Type A* Type As Type Ad Type C Type C, shallow & rounded Ty pe B Type B with large volume Cou ld not maintain a hermetic seal}} [id number] ATIF CHILDS PA-C [facility] [address] [address] 06/21/2024 15:00:36 06/21/2024 15:49:07 Nasal congestion 33608451 R09.81 Chronic sinusitis 692635 00 J32.9 Deviated nasal septum 12 0783078 J34.2 Health Concerns Section Related Observation LastModified by Organization Detai ls LastModified Time None Recorded Concern Status LastModified by Organization Details LastModified Time None Recorded Advance Directives Directive None Recorded Payers Encounter Date Sequence Insurance Name Policy Number Policy Draper Covered Member ID Draper Member ID Guarantor Name 04/22/2024 1 MEDICARE B-DE: [facility] Norma Centracchio [id number] Norma Centracchio 04/22/2024 1 MEDICARE B-DE: [facility] Norma Centracchio [id number] Norma Centracchio 06/21/2024 1 MEDICARE B-DE: [facility] Norma Centracchio [id number] Norma Centracchio Notes Date Note Type Note Provider Name and Address Organization Details Recorded Time 04/22/2024 text/html 53yo female with seasonal allergies, asthma, and history of nasal trauma presents for evaluation of the ears and nose. She endorses bilateral ear blockage sensation, right worse then left, for a couple months. She experienced the same ear blockage last fall. She has a whooshing sound in the right ear. She uses Flonase and Benadryl as needed to manage her allergies. Uses Brio Elipta for asthma. She had skin allergy testing many years and was sensitive to cats and dust. She also endorses chronic nasal congestion, rhinorrhea, and snoring. Prior polysomnogram was normal and she is not concerned about sleep apnea. LUIGI COBB MD [address] [facility],[address], [address], [facility] - [facility] 04/26/2024 13:13:54 06/21/2024 text/html 53yo female with seasonal allergies, asthma, and history of nasal trauma 2005 presents for reevaluation of the ears and nose. She trialed oral antihistamine and intranasal fluticasone with minimal improvement in nasal congestion and aural fullness. Nasal congestion is worse on the right. She continues to experience crackling in the right ear. She has not yet obtained allergy testing. She denies frequent sneezing or nasal drainage. She has known allergies to cat and dust mites. IJEOMA GARDINER MD [address] [place] [address],[place] [address], [place], [address], [facility] 06/22/2024 14:08:09 OBGyn Episode No OBEpisode recorded.
== END 2024-07-22 11:50 | disposition home or self-care (01) ==
LOC: HO.RHE 11:01
PROVIDERS: PCP Internal Medicine; Visit Provider Student in an Organized Health Care Education/Training Program
DX: M25.59 Pain in other specified joint (principal)
CPT/HCPCS: 99205; G2211

== ENCOUNTER → 2024-07-22 12:34 | Outpatient (BNV) | payer MEDICARE, MEDICAID, SELFPAY | PROVIDERS: PCP Internal Medicine; Visit Provider Specialist | DX: M25.50 Pain in unspecified joint (principal) | CPT/HCPCS: 73080; 73110; 73130; 73610; 73630 ==

== ENCOUNTER 2024-09-03 09:10 | Outpatient (AMB) | payer MEDICARE, MEDICAID, SELFPAY ==
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
[2024-09-03 09:17] VITALS: BP 115/62; PULSE 93; O2SAT 98; BMI 25.8
--- OUTSIDE RECORDS SUMMARY | 2024-09-03 09:32 | XMS_ITS | Continuity of Care Document ---
Author Organization [place] [facility], [facility] Address [address] [place] [address] Care Team Providers [employer] Name Role Phone KYLER ODOM Primary Care Provider [phone] Assessment Encounter Date Assessment Date Assessment LastModified by Organization Details LastModified Time 08/31/2024 08/31/2024 Persistent right middle ear effusion with air bubbles. She has TMJ tenderness. I do not feel that the serous fluid is the cause of her pain. Is certainly the cause of some blockage and fullness. I think the TMJ is likely the cause of the pain. She has had a CT of the sinuses and nasal endoscopy which did not show any masses. I am happy to arrange for myringotomy and tube placement but this may not resolve the discomfort. Suggest warm compresses, soft diet and massage. [email or web address] Not available 08/31/2024 11:07:50 Plan of Treatment Reminders Order Date Submit Date Provider Last Modified By Organization Details Last Modified Time Details Appointments Hearing Test 2024 01:30P M Hearing Test Not available Not available Not available Establish ed 30 2024 02:00P M ELIF MARTÍNEZ MD Not available Not available Not available Lab None recorded. Referral None recorded. Procedures None recorded. Surgeries None recorded. Imaging None recorded. Medication Orders None recorded. Patient TargetsNo targets recorded. Patient InstructionsNo instructions recorded. Reason for Referral None Reported. Results Created Date Observation Date Name Description Value Unit Range Abnormal Flag Note LastModifiedBy Organization Detail LastModifiedTime 08/18/1908/17/2024 imagi ng/di agnos tic resul t No observ ation record ed. JANU[facility] [address], [place], [address], 08/17/2024 14:20:03 Result Notes None recorded. Problems Name Problem SNOMED Code Status Onset Date Resolution Date Notes Provider Name and Address Organization Details Recorded Time Deviated nasal septum 871845330 Active 2020 Deviated nasal septum; Note: Date Diagnosed : 09/01/2020 2:31 PM (J34.2) Not Available [facility] 4 03:20:15 Allergic rhinitis caused by pollen 55060967 Active 2020 Allergic rhinitis due to pollen; Note: Date Diagnosed : 09/01/2020 2:31 PM (J30.1) Not Available [facility] 4 03:20:16 Sensorine ural hearing loss of bilateral ears 009216701 Active 2024 TARUN ALTMAN MA, CCC-A [address] [employer],[place] [facility], [place], [address] , [facility] - [facility] 5 11:19:25 Allergic rhinitis 21706813 Active 2024 ATIF CHILDS PA-C [address],[place] [address], [place], [address] , [facility] - [facility] [place] 5 11:52:49 Non-aller gic rhinitis 90744686823 1 Active 2024 ATIF CHILDS PA-C [address] [employer],[place] [address], [place], [address] , [facility] - [facility] [place] 5 12:09:15 Seasonal allergic rhinitis 722482560 Active 2024 ATIF CHILDS PA-C [address], [place], [address] , [facility] - [facility] [place] 5 12:09:15 Disorder of right Eustachia n tube 64252960739 21848 Active 2024 ATIF CHILDS PA-C [address], [place], [address] , [facility] - [facility] [place] 5 13:18:13 Nasal congestio n 33105104 Active 2024 ATIF CHILDS PA-C [address], [place], [address] , [facility] - [facility] [place] 15:46:43 Chronic sinusitis 99803607 Active 2024 ATIF CHILDS PA-C [address], [place], [address] , [facility] - [facility] [place] 15:46:53 Mixed conductiv e AND sensorine ural hearing loss 40026091 Active 2024 TARUN ALTMAN MA, CCC-A [address], [place], [address] , [facility] - [facility] [place] 11:38:20 Bilateral hearing loss 56038233 Active 2024 TARUN ALTMAN MA, CCC-A [address], [place], [address] , [facility] - [facility] [place] 11:38:48 Chronic serous otitis media of right ear 225469647 Active 2024 FALLON HERNANDEZ PA-C [address], [place], [address] , [facility] - [facility] [place] 12:05:00 Pain of right temporoma ndibular joint 17620962370 132146 Active 2024 ELIF LR MD [address], [place], [address] , [facility] - [facility] [place] 11:06:26 Problem Notes None recorded. Procedures Surgical History Date Name Laterality Status Provider Name and Address Organization Details Recorded Time 08/18/19 25 Nasal Endoscopy completed FALLON HERNANDEZ PA-C [address], [place], [address], [facility] - [facility] [place] 08/17/2024 12:03:26 08/18/19 25 Tympanometry - 23445 completed TARUN ALTMAN MA, CCC-A [address], [place], [address], [facility] - [facility] 08/17/2024 11:39:02 08/18/19 25 Air & Bone Audio - 12015 completed TARUN ALTMAN MA, CCC-A [address], [place], [address], [facility] - [facility] 08/17/2024 11:39:11 04/22/19 25 Nasal Endoscopy completed ATIF CHILDS PA-C [address] [facility] [address], [place], [address], [facility] - [facility] 04/22/2024 19:33:14 04/22/19 25 Comp Audio with Tymps - 75388 & 49726 completed TARUN ALTMAN MA, CCC-A [address],[place] [address], [place], [address], [facility] 04/22/2024 11:19:15 Imaging Results None recorded. Procedure Notes None recorded. Medical Equipment None Reported. Allergies Allergen ID Allergen Name Allergen Category Reaction Reaction Severity Criticality Documentation Date Start Date Code Code System Note Provider Name and Address Organization Details Recorded Time 409851 amoxicill in medicatio n other Not available Not available 08/05/2023 723 RxNorm React ion: other react ion, Unkno wn; Not Available [facility] 4 01:24:35 319650 diclofena c Not available Not available Not available Not available 06/21/2024 3355 RxNorm Leanne carver [place] - [facility] 5 15:22:53 Medications Name Sig Start Date Stop [...] TAKE 1 TABLET BY MOUTH EVERY DAY NEEDED FOR 30 DAYS active Not Available Not Available No t Available atenolol 25 mg tablet TAKE 1 TABLET BY MOUTH TWICE A DAY active Not Available Not Available No t Available venlafaxi ne ER 150 mg capsule,e [...] inhalatio n 2020 active Medicati on ID: [id number] Louann vasquez Name: Advair Diskus S end Method: E-Prescr [...] SPRAY INTO EACH NOSTRIL EVERY DAY FOR 90 DAYS active Not Available Not [...] mg tablet 06/21 completed Medicati on ID: [id number] B rand Name: topirama te Send Method: [...] 24 hr 06/21 completed Medicati on ID: [id number] B rand Name: venlafax ine Send Method: E-Prescr ibed Sub s Allowed: [...] t Available Vitals Date Recorded Body height Provider Name an d Address Organization Details Last Updated DateTime 08/31/2024 157.48 cm EBONY SUN [place] - [facility] 08/31/2024 10:43:48 Social History None recorded. Functional Status None recorded. Mental Status None recorded. Family History Nothing Reported. Medical History Condition Response Allergies/Hayfever Y Heart Problems N Anxiety Y Tonsil Infections N Emphysema N Migraines Y Thyroid Problems N Glaucoma N Depression Y COPD N Developmental Delay N Nasal or Sinus Problems Y Anemia N Immune System Disorder N Anesthesia Complications N Heart Attack (IA) N Other Skin Condition N Diabetes N Rhinitis N Bleeding Disorder N Food Allergy N Arthritis N Hearing Loss N Hyperlipidemia N Cancer N Stroke N Dementia N Nasal polyps N Asthma Y Sleep Disorder Y GERD/Reflux N High Cholesterol N Liver Disease N Headaches N Fibromyalgia N Hypertension N Speech Delay N Kidney Disease N Gynecological HistoryNo gynecological history recorded. Obstetrics History GPAL:G 0 P 0 0 0 0 Past Encounters Encounter ID Performer Location Encounter Start Date Encounter Closed Date Diagnosis/Indication Diagnosis SNOMED-CT Code Diagnosis ICD10 Code Diagnosis Note [id number] FALLON HERNANDEZ PA-C [facility] [address] [address] 08/17/2024 10:52:46 08/17/2024 12:01:41 Mixed conductive AND sensorineural hearing loss 85834038 H90.A31 Audiologic al evaluation results: Right ear: Normal sloping to severe mixed hearing loss Tympanomet ry: Right Ear:Type B Left Ear:Type A Bilateral hearing loss 89911893 H90.A22 Chronic se scarlet otitis media of right ear 125654741 H65.21 [id number] ELIF LR MD [facility] [address] [address] 08/31/2024 10:30:20 08/31/2024 12:47:49 Chronic serous otitis media of right ear 261745325 H65.21 Pain of ri ght temporomandibular joint 6280484325 4780375 M26.621 Health Concerns Section Related Observation LastModified by Organization Detai ls LastModified Time None Recorded Concern Status LastModified by Organization Details LastModified Time None Recorded Payers Encounter Date Sequence Insurance Name Policy Number Policy Draper Covered Member ID Draper Member ID Guarantor Name 08/31/2024 2 [place] [facility] Norma Centracchio [id number] Norma Maloneanh 08/31/2024 1 MEDICARE B[place] [facility] Norma Maloneanh [id number] Norma Faisalanh Notes Date Note Type Note Provider Name and Address Organization Details Recorded Time 08/31/2024 text/html Feels right ear painful over last week. Wearing dental aligners. No change in hearing since last visit ELIF LONG MD [address] [place] [address], [place], [address], [facility] - [facility] 08/31/2024 11:08:48 OBGyn Episode No OBEpisode recorded.
== END 2024-09-03 09:45 | disposition home or self-care (01) ==
LOC: HO.RHE 09:11
PROVIDERS: PCP Internal Medicine; Visit Provider Student in an Organized Health Care Education/Training Program
DX: M25.50 Pain in unspecified joint (principal); Z51.81 Encounter for therapeutic drug level monitoring; Z79.899 Other long term (current) drug therapy
CPT/HCPCS: 99213

== ENCOUNTER → 2024-09-03 09:10 | Outpatient (BNVA) | payer MEDICARE, MEDICAID, SELFPAY | PROVIDERS: PCP Internal Medicine; Visit Provider Student in an Organized Health Care Education/Training Program | DX: M25.50 Pain in unspecified joint (principal); Z51.81 Encounter for therapeutic drug level monitoring; Z79.899 Other long term (current) drug therapy | CPT/HCPCS: 99212 ==